=== PATIENT | female | born 1985 | race Caucasian/White ===

== ENCOUNTER → 2018-12-25 | Outpatient (CLI) | payer BC ==
[~2018-12-25] MED LIST: IRON325 MG PO; LEVOXYL0.05 MG PO; MOTRIN 800800 MG/TAB PO; PRENATAL MVI PO
== END ==
LOC: COL.LAB 10:08
DX: O09.811 Supervision of pregnancy resulting from assisted reproductive technology, first trimester (principal); Z3A.00 Weeks of gestation of pregnancy not specified

== ENCOUNTER 2021-08-23 07:55 | Inpatient (IN) | payer BC ==
[~2021-08-23] VITALS: Ht 160 cm; Wt 101.4 kg
[2021-08-27] VITALS (17 sets, daily range): BP systolic 97–124; BP diastolic 44–84; PULSE 73–106; TEMP 97.4–98.7
--- NOTE | 2021-08-27 05:30 | NUR ---
0530- PT ARRIVES TO OB UNIT, AMBULATORY, ACCOMPANIED BY SPOUSE, MARIANELA. RN ESCORTED TO ROOM AND INSTRUCTIONS GIVEN. +FM 0545- BP 124/84 RA, HR 124, 97% ON RA, 97.4 TEMP ORAL. EFM AND TOCO APPLIED 0600- RT WRIST #18G IV STARTED, X1 SUCCESSFUL ATTEMPT, LABS DRAWN WITH IV START. PT TOLERATED WELL. IV STARTED BY Haily SRIVASTAVA RN 0604- CONSENTS REVIEWED AND SIGNED WITH PT.
[2021-08-27 06:11] LABS: HEMOGLOBIN 12.1 g/dl (12.5-16.0); MEAN CELL VOLUME 92 fl (80.0-100.0); MEAN CORPUSCULAR HEMOGLOBIN 31 pg (27-31); MEAN CORPUSCULAR HGB CONC 34 g/dl (33.0-37.0); MEAN PLATELET VOLUME 11.2 fl (7.4-10.4); PLATELET COUNT 194 K/mm3 (130-400); RED BLOOD COUNT 3.87 M/mm3 (4.10-5.30); REDCELL DISTRIBUTION WIDTH-CV 14.5 % (11.5-14.5)
--- NOTE | 2021-08-27 06:15 | NUR ---
0620Report received from Haily Mckeon RN. Per Haily Mckeon RN, pt off monitor to void. 0625This RN to bedside. EFM replaced. FHR noted to be 180's. Pt right lateral, and LR bolus infusing. RN remains at bedside. Assessment completed.
[2021-08-27 06:26] LABS: HEMATOCRIT 35.5 % (37.0-47.0)
[2021-08-27 07:02] LABS: BAND 7 % (0-10); EOSINOPHIL 1 % (0-4); LYMPHOCYTE 32 % (20.0-51.0); NEUTROPHILS 55 % (42.0-75.2); PLATELET ESTIMATE NORMAL (NORMAL)
[2021-08-28 01:30] VITALS: BP 102/62; PULSE 78; TEMP 98
[2021-08-28 07:30] VITALS: BP 114/65; PULSE 89; TEMP 97.9
--- NOTE | 2021-08-28 09:42 | NUR ---
Initial visit; Parents thanked for offering congratulations for the of their son and requested that Waste Collector offer blessings for Matt. offered a [place] and thanked family for choosing our hospital.
[2021-08-28 16:06] VITALS: BP 102/62; PULSE 85; TEMP 98.5
[2021-08-28 19:00] VITALS: BP 116/82; PULSE 86; TEMP 97.7
[2021-08-29] MEDS ORDERED: PERCOCET 325 MG1 TA2 PO (07:36)
[2021-08-29] MEDS ORDERED: MOTRIN 800800 MG/TAB PO (07:36)
--- NOTE | 2021-08-29 08:00 | NUR ---
Rests in chair, alert. Denies any needs or discomfort at this time.
[2021-08-29 09:00] VITALS: BP 113/73; PULSE 84; TEMP 98.2
--- NOTE | 2021-08-29 09:00 | NUR ---
Rests in bed, alert. Denies any needs at this time.
--- NOTE | 2021-08-29 11:00 | NUR ---
Rests in bed, alert. Denies any needs at this time.
--- NOTE | 2021-08-29 15:00 | NUR ---
Rests in bed, alert. Discharge instructions given, verbalizes understanding.
== END 2021-08-29 15:40 | disposition home or self-care (01) | DRG 788 ==
LOC: OB 08-27 05:23 → LDR 08-27 07:54 → OB 08-29 15:40
PROVIDERS: ADMIT Obstetrics & Gynecology
PROC: 10D00Z1 Extraction of Products of Conception, Low, Open Approach (ICD-10-PCS; principal; 2021-08-27)
PROC: 3E0334Z Introduction of Serum, Toxoid and Vaccine into Peripheral Vein, Percutaneous Approach (ICD-10-PCS; 2021-08-29)
DX: O36.63X0 Maternal care for excessive fetal growth, third trimester, not applicable or unspecified (principal); O99.284 Endocrine, nutritional and metabolic diseases complicating childbirth; E03.9 Hypothyroidism, unspecified; O26.893 Other specified pregnancy related conditions, third trimester; O99.02 Anemia complicating childbirth; D64.9 Anemia, unspecified; Z3A.40 40 weeks gestation of pregnancy; Z37.0 Single live birth
CPT/HCPCS: J0690; J1885; J2175; J2370; J2405; J2590; J2791; J7120